=== PATIENT | female | born 1940 | race African-American/Black ===

== ENCOUNTER 2020-01-27 02:59 | Inpatient (IN) ==
[2020-01-27] MEDS ORDERED: ACETAMINOPHEN 500 MG TABLET PO STA (04:04)
[2020-01-27] MEDS ORDERED: SODIUM CHLORIDE 0.9% 1,000 ML IV STA (04:04)
[2020-01-27] MEDS ORDERED: hydrALAZINE 20 MG/1 ML VIAL IV STA (04:04)
[2020-01-27 04:20] LABS: Basophils % 0.4 % (0.0-0.8); Immature Granulocytes % 0.6 %; Immature Granulocytes Absolute 0.03 #; Lymphocytes # 0.9 10*3/uL (1.4-4.0); Lymphocytes % 18.6 % (21.3-54.2); Mean Corpuscular HGB Conc 31.7 GM/DL (32-36); Mean Corpuscular Volume 82.3 FL (87-102); Monocytes % 4.7 % (1.7-12.7); Neutrophils % 75.7 % (38.7-73.9); Platelet Count 187 T/CUMM (130-400); Red Blood Count 4.98 MC/CUMM (3.8-5.5); Red Cell Distribution Width 12.7 % (9.3-17.3); White Blood Count 4.7 T/CUMM (4-12)
[2020-01-27 04:27] LABS: PT Patient Result 10.8 SECS (9.8-11.9)
[2020-01-27 04:33] LABS: Alanine Aminotransferase 17 U/L (13-56); Albumin 2.5 G/DL (3.4-5.0); Alkaline Phosphatase 77 U/L (45-117); Aspartate Amino Transferase 41 U/L (0-37); Bilirubin,Total < 0.39 MG/DL (0.2-1.0); Blood Urea Nitrogen 26 MG/DL (7-18); Calcium 8.7 MG/DL (8.5-10.1); Estimated Glom Filtration Rate 80 ML/MIN; Ferritin 463.8 ng/ml (8-252); Glucose 117 MG/DL (74-106); Osmolality,Calculated 263.9 MOS/KG (273-304); Total Protein 6.9 G/DL (6.4-8.3)
[2020-01-27] MEDS ORDERED: AZITHROMYCIN INJ 500 MG in SODIUM CHLORIDE 0.9% 250 ML IV STA (05:37)
[2020-01-27] MEDS ORDERED: ONDANSETRON 4 MG/2 ML VIAL IV PRN (05:46)
[2020-01-27] MEDS ORDERED: GLUCAGON 1 MG VIAL IM PRN ×2 (05:46→05:54)
[2020-01-27] MEDS ORDERED: ACETAMINOPHEN 325 MG TABLET PO PRN (05:46)
[2020-01-27] MEDS ORDERED: DEXTROSE 10% 250 ML BAG IV PRN (05:53)
[2020-01-27] MEDS ORDERED: DEXTROSE 50% 25 GM/50 ML VIAL IV PRN (05:54)
[2020-01-27] MEDS ORDERED: AZITHROMYCIN INJ 500 MG in SODIUM CHLORIDE 0.9% 250 ML IV SCH (06:00)
[2020-01-27] MEDS ORDERED: risperiDONE 1 MG TABLET PO SCH (09:00)
[2020-01-27] MEDS ORDERED: DULoxetine 30 MG CAPSULE PO SCH (09:00)
[2020-01-27] MEDS ORDERED: METOPROLOL TARTRATE 50 MG TABLET PO SCH (09:00)
[2020-01-27] MEDS ORDERED: lisinopriL 10 MG TABLET PO SCH (09:00)
[2020-01-27] MEDS ORDERED: metFORMIN 500 MG TABLET PO SCH (09:00)
[2020-01-27] MEDS ORDERED: GABAPENTIN 300 MG CAPSULE PO SCH (09:00)
[2020-01-27] MEDS ORDERED: PANTOPRAZOLE 40 MG TABLET PO SCH (09:00)
[2020-01-27] MEDS: INSULIN REGULAR 100 UNIT/ML SUBCUT SCH ×4 (09:15→23:00)
[2020-01-27] MEDS ORDERED: cefTRIAXone 2,000 MG in SYRINGE 1 EACH IV SCH (11:00)
[2020-01-27] MEDS: ENOXAPARIN 40 MG/0.4 ML SYRINGE SUBCUT SCH (11:23)
[2020-01-27] MEDS: FUROSEMIDE 20 MG TABLET PO SCH (11:23)
[2020-01-27] MEDS: ISOSORBIDE MONONITRATE 30 MG TABLET PO SCH (11:23)
[2020-01-27] MEDS: CLOPIDOGREL 75 MG TABLET PO SCH (11:24)
[2020-01-27] MEDS: SODIUM CHLORIDE 0.9% 1,000 ML IV SCH (14:28)
[2020-01-27] MEDS: PIPERACILLIN/TAZOBACTAM 3,375 MG in SODIUM CHLORIDE 0.9% 100 ML IV SCH ×2 (14:29→23:25)
[2020-01-27] MEDS: ZINC GLUCONATE 50 MG TABLET PO SCH (17:41)
[2020-01-27] MEDS: VANCOMYCIN INJ 1,250 MG in SODIUM CHLORIDE 0.9% 250 ML IV SCH (18:20)
[2020-01-27] MEDS: RANOLAZINE 500 MG TABLET PO SCH (21:00)
[2020-01-27] MEDS: carvediloL 3.125 MG TABLET PO SCH (21:00)
[2020-01-28] MEDS ORDERED: LABETALOL 20 MG/4 ML SYRINGE IV PRN (01:29)
[2020-01-28] MEDS: hydrALAZINE 20 MG/1 ML VIAL IV PRN ×2 (02:00→10:08)
[2020-01-28 06:09] LABS: Basophils % 0.3 % (0.0-0.8); Hematocrit 41.7 VOL% (35.7-47.0); Hemoglobin 13.6 GM/DL (12.0-16.0); Immature Granulocytes Absolute 0.08 #; Lymphocytes # 0.9 10*3/uL (1.4-4.0); Lymphocytes % 11.5 % (21.3-54.2); Mean Corpuscular HGB Conc 32.6 GM/DL (32-36); Mean Platelet Volume 11.3 FL (9.6-12.0); Monocytes % 3.3 % (1.7-12.7); Neutrophils % 83.9 % (38.7-73.9); Platelet Count 238 T/CUMM (130-400); Red Blood Count 5.28 MC/CUMM (3.8-5.5); Red Cell Distribution Width 12.7 % (9.3-17.3)
[2020-01-28 06:23] LABS: Calcium 9.1 MG/DL (8.5-10.1); Osmolality,Calculated 264.5 MOS/KG (273-304)
[2020-01-28 07:14] LABS: ABG Base Excess 1.1 MMOL/L (-2.5-2.5); ABG HCO3 25.2 MMOL/L (20-26); ABG PCO2 28.3 MM HG (35-48); ABG PH 7.516 (7.35-7.45); ABG PO2 56.5 MM HG (80-95); ABG TCO2 19.8 MMOL/L (23-27)
[2020-01-28] MEDS: PIPERACILLIN/TAZOBACTAM 3,375 MG in SODIUM CHLORIDE 0.9% 100 ML IV SCH ×3 (07:50→23:28)
[2020-01-28] MEDS: INSULIN REGULAR 100 UNIT/ML SUBCUT SCH ×2 (08:01→20:17)
[2020-01-28] MEDS ORDERED: MAGNESIUM SULF RIDER 4 GM in PREMIX 1 EACH IV PRN (08:18)
[2020-01-28] MEDS ORDERED: MAGNESIUM SULF RIDER 2 GM in PREMIX 1 EACH IV PRN (08:18)
[2020-01-28] MEDS: CLOPIDOGREL 75 MG TABLET PO SCH (10:08)
[2020-01-28] MEDS: FUROSEMIDE 20 MG TABLET PO SCH (10:08)
[2020-01-28] MEDS: AZITHROMYCIN 250 MG TABLET PO SCH (10:08)
[2020-01-28] MEDS: ZINC GLUCONATE 50 MG TABLET PO SCH (10:08)
[2020-01-28] MEDS: ENOXAPARIN 40 MG/0.4 ML SYRINGE SUBCUT SCH (10:08)
[2020-01-28] MEDS: RANOLAZINE 500 MG TABLET PO SCH (10:08)
[2020-01-28] MEDS: ISOSORBIDE MONONITRATE 30 MG TABLET PO SCH (10:08)
[2020-01-28] MEDS: carvediloL 3.125 MG TABLET PO SCH (10:08)
[2020-01-28] MEDS ORDERED: SUCCINYLCHOLINE 200 MG/10 ML VIAL ONE (12:09)
[2020-01-28 13:09] LABS: ABG Base Excess 0.2 MMOL/L (-2.5-2.5); ABG HCO3 24.6 MMOL/L (20-26); ABG Oxygen Saturation 99.7 % (95-100); ABG PCO2 29.8 MM HG (35-48); ABG PH 7.487 (7.35-7.45); ABG TCO2 19.7 MMOL/L (23-27)
[2020-01-28] MEDS ORDERED: fentaNYL INJ 1,250 MCG in SODIUM CHLORIDE 0.9% 225 ML IV PRN (15:41)
[2020-01-28] MEDS: SODIUM CHLORIDE 0.9% 1,000 ML IV SCH ×2 (17:45→20:15)
[2020-01-28] MEDS: VANCOMYCIN INJ 1,250 MG in SODIUM CHLORIDE 0.9% 250 ML IV SCH (17:45)
[2020-01-28] MEDS ORDERED: NOREPINEPHRINE 8 MG in SODIUM CHLORIDE 0.9% 242 ML IV PRN (19:30)
[2020-01-28] MEDS: lisinopriL 20 MG TABLET PO SCH (20:18)
[2020-01-29] MEDS: SIMVASTATIN 10 MG TABLET PO SCH ×2 (00:12→20:53)
[2020-01-29] MEDS: ASPIRIN EC 81 MG TABLET PO SCH ×2 (00:12→10:00)
[2020-01-29] MEDS: INSULIN REGULAR 100 UNIT/ML SUBCUT SCH ×4 (00:12→20:53)
[2020-01-29] MEDS: RANOLAZINE 500 MG TABLET PO SCH ×3 (00:12→20:53)
[2020-01-29 03:20] LABS: ABG Base Excess 0.8 MMOL/L (-2.5-2.5); ABG HCO3 25.2 MMOL/L (20-26); ABG Oxygen Saturation 99.5 % (95-100); ABG PCO2 41.5 MM HG (35-48); ABG TCO2 23.2 MMOL/L (23-27); Pt O2 Delivery Device Ventilator
[2020-01-29] MEDS: PIPERACILLIN/TAZOBACTAM 3,375 MG in SODIUM CHLORIDE 0.9% 100 ML IV SCH ×3 (05:18→22:29)
[2020-01-29 06:16] LABS: Basophils % 0.2 % (0.0-0.8); Eosinophils % 0.6 % (0.00-10.9); Hematocrit 30.1 VOL% (35.7-47.0); Hemoglobin 9.7 GM/DL (12.0-16.0); Immature Granulocytes % 1.1 %; Immature Granulocytes Absolute 0.06 #; Lymphocytes # 0.9 10*3/uL (1.4-4.0); Lymphocytes % 15.7 % (21.3-54.2); Mean Corpuscular HGB Conc 32.2 GM/DL (32-36); Mean Corpuscular Volume 80.9 FL (87-102); Mean Platelet Volume 10.5 FL (9.6-12.0); Monocytes % 3.7 % (1.7-12.7); Neutrophils % 78.7 % (38.7-73.9); Platelet Count 201 T/CUMM (130-400); Red Blood Count 3.72 MC/CUMM (3.8-5.5); Red Cell Distribution Width 13.2 % (9.3-17.3); White Blood Count 5.4 T/CUMM (4-12)
[2020-01-29 06:33] LABS: Hypochromasia 1+; Microcytosis Slight; Ovalocytes Slight
[2020-01-29] MEDS: SODIUM CHLORIDE 0.9% 1,000 ML IV SCH ×2 (08:05→23:48)
[2020-01-29] MEDS: FUROSEMIDE 20 MG TABLET PO SCH (10:00)
[2020-01-29] MEDS: AZITHROMYCIN 250 MG TABLET PO SCH (10:00)
[2020-01-29] MEDS: ENOXAPARIN 40 MG/0.4 ML SYRINGE SUBCUT SCH (10:00)
[2020-01-29] MEDS: ISOSORBIDE MONONITRATE 30 MG TABLET PO SCH (10:00)
[2020-01-29] MEDS: ZINC GLUCONATE 50 MG TABLET PO SCH (10:00)
[2020-01-29] MEDS ORDERED: SODIUM CHLORIDE 0.9% 1,000 ML IV PRN (13:34)
[2020-01-29 15:22] LABS: Calcium 8.3 MG/DL (8.5-10.1); Osmolality,Calculated 268.4 MOS/KG (273-304)
[2020-01-29] MEDS: VANCOMYCIN INJ 1,250 MG in SODIUM CHLORIDE 0.9% 250 ML IV SCH (17:36)
[2020-01-29] MEDS: lisinopriL 20 MG TABLET PO SCH (17:37)
[2020-01-29 20:45] LABS: % Iron Saturation 16.7 % (18-50); Ferritin 531.9 ng/ml (8-252)
[2020-01-29] MEDS ORDERED: HALOPERIDOL 5 MG/ML AMP IM ONE (21:35)
[2020-01-30] MEDS ORDERED: LORazepam 2 MG/1 ML VIAL IV ONE ×2 (02:14→05:23)
[2020-01-30 05:06] LABS: Basophils % 0.3 % (0.0-0.8); Eosinophils % 0.1 % (0.00-10.9); Hematocrit 30.6 VOL% (35.7-47.0); Hemoglobin 9.7 GM/DL (12.0-16.0); Immature Granulocytes % 0.8 %; Immature Granulocytes Absolute 0.07 #; Lymphocytes # 0.7 10*3/uL (1.4-4.0); Lymphocytes % 7.1 % (21.3-54.2); Mean Corpuscular HGB Conc 31.7 GM/DL (32-36); Mean Corpuscular Volume 82.3 FL (87-102); Monocytes % 5.4 % (1.7-12.7); Neutrophils % 86.3 % (38.7-73.9); Platelet Count 201 T/CUMM (130-400); Red Blood Count 3.72 MC/CUMM (3.8-5.5); Red Cell Distribution Width 13.1 % (9.3-17.3); White Blood Count 9.2 T/CUMM (4-12)
[2020-01-30 05:27] LABS: Eosinophils 1 % (0-10); Hypochromasia 1+; Lymphocytes 8 % (20-55); Ovalocytes Slight; Platelet Estimate Adequate; Segmented Neutrophils 87 % (50-85); Total Cells Counted 100
[2020-01-30 05:30] LABS: Osmolality,Calculated 287.1 MOS/KG (273-304)
[2020-01-30 05:32] LABS: ABG Base Excess -4.1 MMOL/L (-2.5-2.5); ABG Oxygen Saturation 98.1 % (95-100); ABG PCO2 33.3 MM HG (35-48); ABG PH 7.397 (7.35-7.45); ABG PO2 142.9 MM HG (80-95); Allen Test Positive
[2020-01-30 05:33] LABS: Microcytosis Slight
[2020-01-30] MEDS: PIPERACILLIN/TAZOBACTAM 3,375 MG in SODIUM CHLORIDE 0.9% 100 ML IV SCH ×3 (05:45→22:28)
[2020-01-30] MEDS: VANCOMYCIN INJ 1,250 MG in SODIUM CHLORIDE 0.9% 250 ML IV SCH (05:50)
[2020-01-30] MEDS ORDERED: ZIPRASIDONE 20 MG/1 ML VIAL IM ONE (08:00)
[2020-01-30] MEDS: ASPIRIN EC 81 MG TABLET PO SCH (08:13)
[2020-01-30] MEDS: FUROSEMIDE 20 MG TABLET PO SCH (08:13)
[2020-01-30] MEDS: ISOSORBIDE MONONITRATE 30 MG TABLET PO SCH (08:13)
[2020-01-30] MEDS: RANOLAZINE 500 MG TABLET PO SCH ×2 (08:34→20:35)
[2020-01-30] MEDS: ENOXAPARIN 100 MG/ML SYRINGE SUBCUT SCH (08:34)
[2020-01-30] MEDS: AZITHROMYCIN 250 MG TABLET PO SCH (08:34)
[2020-01-30] MEDS: ZINC GLUCONATE 50 MG TABLET PO SCH (08:34)
[2020-01-30] MEDS ORDERED: POTASSIUM CHLORIDE 10 MEQ TABLET PO ONE (08:39)
[2020-01-30] MEDS ORDERED: MAGNESIUM SULF RIDER 2 GM in PREMIX 1 EACH IV ONE (08:40)
[2020-01-30] MEDS: METOPROLOL TARTRATE 25 MG TABLET PO SCH ×2 (09:50→20:35)
[2020-01-30] MEDS: INSULIN REGULAR 100 UNIT/ML SUBCUT SCH ×4 (10:07→21:05)
[2020-01-30] MEDS: DEXMEDETOMIDINE 200 MCG in SODIUM CHLORIDE 0.9% 48 ML IV PRN ×2 (11:53→14:25)
[2020-01-30] MEDS: ZIPRASIDONE 20 MG/1 ML VIAL IM SCH ×2 (15:15→19:31)
[2020-01-30] MEDS: SIMVASTATIN 10 MG TABLET PO SCH (20:35)
[2020-01-30] MEDS: SODIUM CHLORIDE 0.9% 1,000 ML IV SCH (22:25)
[2020-01-30] MEDS: DEXMEDETOMIDINE 400 MCG in SODIUM CHLORIDE 0.9% 96 ML IV PRN (22:31)
[2020-01-31] MEDS: ZIPRASIDONE 20 MG/1 ML VIAL IM SCH ×4 (01:03→20:03)
[2020-01-31 04:46] LABS: Basophils % 0.2 % (0.0-0.8); Eosinophils # 0.1 10*3/uL (0.0-0.87); Eosinophils % 0.9 % (0.00-10.9); Hematocrit 31.7 VOL% (35.7-47.0); Hemoglobin 10.4 GM/DL (12.0-16.0); Immature Granulocytes % 0.8 %; Immature Granulocytes Absolute 0.08 #; Lymphocytes # 1.4 10*3/uL (1.4-4.0); Lymphocytes % 13.8 % (21.3-54.2); Mean Corpuscular HGB Conc 32.8 GM/DL (32-36); Mean Corpuscular Volume 79.8 FL (87-102); Mean Platelet Volume 10.5 FL (9.6-12.0); Neutrophils % 79.3 % (38.7-73.9); Platelet Count 257 T/CUMM (130-400); Red Blood Count 3.97 MC/CUMM (3.8-5.5); Red Cell Distribution Width 13.1 % (9.3-17.3); White Blood Count 10.1 T/CUMM (4-12)
[2020-01-31 04:48] LABS: Allen Test Positive
[2020-01-31 04:49] LABS: ABG Base Excess -2.8 MMOL/L (-2.5-2.5); ABG HCO3 21.9 MMOL/L (20-26); ABG Oxygen Saturation 89.7 % (95-100); ABG PCO2 33.8 MM HG (35-48); ABG PH 7.406 (7.35-7.45); ABG PO2 61.4 MM HG (80-95); ABG TCO2 19.3 MMOL/L (23-27)
[2020-01-31 05:05] LABS: Osmolality,Calculated 290.7 MOS/KG (273-304)
[2020-01-31] MEDS: PIPERACILLIN/TAZOBACTAM 3,375 MG in SODIUM CHLORIDE 0.9% 100 ML IV SCH ×2 (05:33→17:59)
[2020-01-31] MEDS: DEXMEDETOMIDINE 400 MCG in SODIUM CHLORIDE 0.9% 96 ML IV PRN ×3 (05:40→18:35)
[2020-01-31 06:20] LABS: Hepatitis B Core IgM Quant 0.13 Index; Hepatitis B Surface Ag Quant 0.81 Index; Hepatitis B Surface Ag Result Negative (Negative); Hepatitis C Virus Ab Quant 0.16 Index; Hepatitis C Virus Ab Result Negative (Negative)
[2020-01-31 06:39] LABS: Band Neutrophils 1 % (0-10); Eosinophils 2 % (0-10); Hypochromasia 1+; Lymphocytes 16 % (20-55); Microcytosis Slight; Ovalocytes Slight; Platelet Estimate Adequate; Segmented Neutrophils 77 % (50-85); Total Cells Counted 100
[2020-01-31] MEDS: ENOXAPARIN 100 MG/ML SYRINGE SUBCUT SCH (09:01)
[2020-01-31] MEDS: INSULIN REGULAR 100 UNIT/ML SUBCUT SCH ×4 (09:53→20:03)
[2020-01-31] MEDS: POTASSIUM CHLORIDE RIDER 10 MEQ in PREMIX 1 EACH IV PRN ×2 (10:00→14:08)
[2020-01-31] MEDS: ISOSORBIDE MONONITRATE 30 MG TABLET PO SCH (12:45)
[2020-01-31] MEDS: METOPROLOL TARTRATE 25 MG TABLET PO SCH ×2 (12:45→20:03)
[2020-01-31] MEDS: SODIUM CHLORIDE 0.9% 1,000 ML IV SCH (12:46)
[2020-01-31] MEDS: DULoxetine 30 MG CAPSULE PO SCH (12:48)
[2020-01-31] MEDS: ARIPiprazole 10 MG TABLET PO SCH ×2 (12:48→20:03)
[2020-01-31] MEDS: GABAPENTIN 600 MG TABLET PO SCH ×2 (12:49→20:03)
[2020-01-31] MEDS ORDERED: VALPROIC ACID INJ 500 MG in SODIUM CHLORIDE 0.9% 100 ML IV SCH (13:00)
[2020-01-31] MEDS: ASPIRIN EC 81 MG TABLET PO SCH (13:10)
[2020-01-31] MEDS: FUROSEMIDE 20 MG TABLET PO SCH (13:10)
[2020-01-31] MEDS: ZINC GLUCONATE 50 MG TABLET PO SCH (13:11)
[2020-01-31] MEDS: AZITHROMYCIN 250 MG TABLET PO SCH (13:11)
[2020-01-31] MEDS: RANOLAZINE 500 MG TABLET PO SCH ×2 (13:11→20:03)
[2020-01-31] MEDS: SIMVASTATIN 10 MG TABLET PO SCH (20:04)
[2020-01-31] MEDS: POTASSIUM CHLORIDE 20 MEQ/15 ML UDCUP PO ONE (22:33)
[2020-02-01] MEDS: POTASSIUM CHLORIDE 20 MEQ/15 ML UDCUP PO ONE (00:17)
[2020-02-01] MEDS: ZIPRASIDONE 20 MG/1 ML VIAL IM SCH ×4 (01:37→21:39)
[2020-02-01] MEDS: LORazepam 2 MG/1 ML VIAL IV PRN ×7 (02:10→22:35)
[2020-02-01] MEDS: SODIUM CHLORIDE 0.9% 1,000 ML IV SCH ×3 (03:56→16:58)
[2020-02-01 04:42] LABS: ABG Base Excess -2.7 MMOL/L (-2.5-2.5); ABG HCO3 22.1 MMOL/L (20-26); ABG Oxygen Saturation 98.8 % (95-100); ABG PCO2 34.6 MM HG (35-48); ABG PH 7.402 (7.35-7.45); Allen Test Positive
[2020-02-01 05:24] LABS: Basophils % 0.4 % (0.0-0.8); Eosinophils % 0.4 % (0.00-10.9); Hematocrit 28.4 VOL% (35.7-47.0); Hemoglobin 9.4 GM/DL (12.0-16.0); Immature Granulocytes % 1.3 %; Immature Granulocytes Absolute 0.11 #; Lymphocytes # 1.3 10*3/uL (1.4-4.0); Lymphocytes % 15.9 % (21.3-54.2); Mean Corpuscular HGB Conc 33.1 GM/DL (32-36); Mean Corpuscular Volume 80.2 FL (87-102); Mean Platelet Volume 10.8 FL (9.6-12.0); Monocytes % 4.5 % (1.7-12.7); NRBC # 0.03 10*3/uL; Neutrophils % 77.5 % (38.7-73.9); Platelet Count 218 T/CUMM (130-400); Red Blood Count 3.54 MC/CUMM (3.8-5.5); Red Cell Distribution Width 13.1 % (9.3-17.3); White Blood Count 8.5 T/CUMM (4-12)
[2020-02-01] MEDS: PIPERACILLIN/TAZOBACTAM 3,375 MG in SODIUM CHLORIDE 0.9% 100 ML IV SCH ×2 (05:30→17:17)
[2020-02-01 05:38] LABS: Bilirubin,Total 1.5 MG/DL (0.2-1.0); Calcium 8.4 MG/DL (8.5-10.1); Osmolality,Calculated 292.4 MOS/KG (273-304); Total Protein 6.8 G/DL (6.4-8.3)
[2020-02-01 05:52] LABS: Hypochromasia 1+; Microcytosis 1+; Ovalocytes Few
[2020-02-01 05:53] LABS: Platelet Estimate Normal
[2020-02-01] MEDS: ARIPiprazole 10 MG TABLET PO SCH ×2 (08:30→21:47)
[2020-02-01] MEDS: ASPIRIN EC 81 MG TABLET PO SCH (08:30)
[2020-02-01] MEDS: ISOSORBIDE MONONITRATE 30 MG TABLET PO SCH (08:30)
[2020-02-01] MEDS: ZINC GLUCONATE 50 MG TABLET PO SCH (08:30)
[2020-02-01] MEDS: RANOLAZINE 500 MG TABLET PO SCH ×2 (08:30→21:48)
[2020-02-01] MEDS: GABAPENTIN 600 MG TABLET PO SCH ×2 (08:30→21:48)
[2020-02-01] MEDS: METOPROLOL TARTRATE 25 MG TABLET PO SCH ×2 (08:30→21:47)
[2020-02-01] MEDS: FUROSEMIDE 20 MG TABLET PO SCH (08:30)
[2020-02-01] MEDS: ENOXAPARIN 100 MG/ML SYRINGE SUBCUT SCH (08:30)
[2020-02-01] MEDS: DULoxetine 30 MG CAPSULE PO SCH (08:30)
[2020-02-01] MEDS: INSULIN REGULAR 100 UNIT/ML SUBCUT SCH ×4 (08:40→21:47)
[2020-02-01] MEDS: SIMVASTATIN 10 MG TABLET PO SCH (21:48)
[2020-02-02] MEDS: ZIPRASIDONE 20 MG/1 ML VIAL IM SCH ×5 (02:09→19:52)
[2020-02-02] MEDS: LORazepam 2 MG/1 ML VIAL IV PRN ×3 (02:10→20:15)
[2020-02-02] MEDS: hydrALAZINE 20 MG/1 ML VIAL IV PRN ×2 (02:14→07:17)
[2020-02-02 04:29] LABS: Allen Test Positive; Pt O2 Delivery Device Venturi Mask
[2020-02-02 04:30] LABS: ABG Base Excess -2.7 MMOL/L (-2.5-2.5); ABG Oxygen Saturation 89.5 % (95-100); ABG PCO2 31.5 MM HG (35-48); ABG PH 7.428 (7.35-7.45); ABG PO2 61.6 MM HG (80-95)
[2020-02-02 04:38] LABS: Basophils % 0.4 % (0.0-0.8); Eosinophils # 0.1 10*3/uL (0.0-0.87); Eosinophils % 1.6 % (0.00-10.9); Hematocrit 28.6 VOL% (35.7-47.0); Hemoglobin 9.4 GM/DL (12.0-16.0); Immature Granulocytes Absolute 0.41 #; Lymphocytes # 1.1 10*3/uL (1.4-4.0); Lymphocytes % 13.8 % (21.3-54.2); Mean Corpuscular HGB Conc 32.9 GM/DL (32-36); Mean Corpuscular Volume 82.7 FL (87-102); Mean Platelet Volume 10.4 FL (9.6-12.0); Monocytes % 5.3 % (1.7-12.7); NRBC # 0.03 10*3/uL; Neutrophils % 73.9 % (38.7-73.9); Platelet Count 260 T/CUMM (130-400); Red Blood Count 3.46 MC/CUMM (3.8-5.5); Red Cell Distribution Width 13.2 % (9.3-17.3); White Blood Count 8.3 T/CUMM (4-12)
[2020-02-02 04:39] LABS: Bilirubin,Total 1.2 MG/DL (0.2-1.0); Calcium 8.7 MG/DL (8.5-10.1); Osmolality,Calculated 297.3 MOS/KG (273-304); Total Protein 6.9 G/DL (6.4-8.3)
[2020-02-02] MEDS ORDERED: hydrALAZINE 20 MG/1 ML VIAL IV ONE (05:39)
[2020-02-02] MEDS: PIPERACILLIN/TAZOBACTAM 3,375 MG in SODIUM CHLORIDE 0.9% 100 ML IV SCH ×2 (05:54→17:50)
[2020-02-02] MEDS: SODIUM CHLORIDE 0.9% 1,000 ML IV SCH ×2 (06:57→13:30)
[2020-02-02] MEDS: RANOLAZINE 500 MG TABLET PO SCH ×2 (08:00→20:00)
[2020-02-02] MEDS: DULoxetine 30 MG CAPSULE PO SCH (08:00)
[2020-02-02] MEDS: ZINC GLUCONATE 50 MG TABLET PO SCH (08:00)
[2020-02-02] MEDS: GABAPENTIN 600 MG TABLET PO SCH ×2 (08:00→20:00)
[2020-02-02] MEDS: ENOXAPARIN 100 MG/ML SYRINGE SUBCUT SCH (08:00)
[2020-02-02] MEDS: FUROSEMIDE 20 MG TABLET PO SCH (08:00)
[2020-02-02] MEDS: METOPROLOL TARTRATE 25 MG TABLET PO SCH ×2 (08:00→20:00)
[2020-02-02] MEDS: ASPIRIN EC 81 MG TABLET PO SCH (08:00)
[2020-02-02] MEDS: amLODIPine 5 MG TABLET PO SCH (08:00)
[2020-02-02] MEDS: ARIPiprazole 10 MG TABLET PO SCH ×2 (08:00→20:00)
[2020-02-02] MEDS: ISOSORBIDE MONONITRATE 30 MG TABLET PO SCH (08:00)
[2020-02-02] MEDS: POTASSIUM CHLORIDE 20 MEQ TABLET PO PRN ×2 (09:00→16:15)
[2020-02-02] MEDS: INSULIN REGULAR 100 UNIT/ML SUBCUT SCH ×4 (10:01→20:00)
[2020-02-02] MEDS: SIMVASTATIN 10 MG TABLET PO SCH (20:00)
[2020-02-03] MEDS: LORazepam 2 MG/1 ML VIAL IV PRN ×6 (01:12→21:15)
[2020-02-03] MEDS: SODIUM CHLORIDE 0.9% 1,000 ML IV SCH ×3 (01:50→15:43)
[2020-02-03] MEDS: ZIPRASIDONE 20 MG/1 ML VIAL IM SCH ×2 (02:17→09:49)
[2020-02-03 03:49] LABS: Basophils % 0.4 % (0.0-0.8); Eosinophils # 0.1 10*3/uL (0.0-0.87); Hematocrit 26.9 VOL% (35.7-47.0); Hemoglobin 8.8 GM/DL (12.0-16.0); Immature Granulocytes % 4.2 %; Lymphocytes # 0.9 10*3/uL (1.4-4.0); Mean Corpuscular HGB Conc 32.7 GM/DL (32-36); Mean Corpuscular Volume 84.3 FL (87-102); Mean Platelet Volume 10.3 FL (9.6-12.0); Monocytes % 6.4 % (1.7-12.7); NRBC # 0.09 10*3/uL; Platelet Count 279 T/CUMM (130-400); Red Blood Count 3.19 MC/CUMM (3.8-5.5); Red Cell Distribution Width 13.2 % (9.3-17.3); White Blood Count 7.1 T/CUMM (4-12)
[2020-02-03 04:17] LABS: Albumin 1.9 G/DL (3.4-5.0); Bilirubin,Total 1.2 MG/DL (0.2-1.0); Calcium 9.1 MG/DL (8.5-10.1); Osmolality,Calculated 296.4 MOS/KG (273-304); Total Protein 6.7 G/DL (6.4-8.3)
[2020-02-03 04:36] LABS: Allen Test Positive
[2020-02-03 04:37] LABS: ABG Base Excess -1.3 MMOL/L (-2.5-2.5); ABG HCO3 23.3 MMOL/L (20-26); ABG Oxygen Saturation 95.2 % (95-100); ABG PCO2 36.7 MM HG (35-48); ABG PH 7.405 (7.35-7.45); ABG PO2 79.2 MM HG (80-95); ABG TCO2 21.1 MMOL/L (23-27)
[2020-02-03] MEDS: PIPERACILLIN/TAZOBACTAM 3,375 MG in SODIUM CHLORIDE 0.9% 100 ML IV SCH ×2 (05:37→18:20)
[2020-02-03] MEDS: INSULIN REGULAR 100 UNIT/ML SUBCUT SCH ×4 (09:30→20:46)
[2020-02-03] MEDS: ASPIRIN EC 81 MG TABLET PO SCH (10:03)
[2020-02-03] MEDS: METOPROLOL TARTRATE 25 MG TABLET PO SCH ×2 (10:03→20:46)
[2020-02-03] MEDS: ISOSORBIDE MONONITRATE 30 MG TABLET PO SCH (10:03)
[2020-02-03] MEDS: ARIPiprazole 10 MG TABLET PO SCH ×2 (10:03→20:46)
[2020-02-03] MEDS: DULoxetine 30 MG CAPSULE PO SCH (10:03)
[2020-02-03] MEDS: FUROSEMIDE 20 MG TABLET PO SCH (10:03)
[2020-02-03] MEDS: amLODIPine 5 MG TABLET PO SCH (10:04)
[2020-02-03] MEDS: GABAPENTIN 600 MG TABLET PO SCH ×2 (10:04→20:46)
[2020-02-03] MEDS: ENOXAPARIN 100 MG/ML SYRINGE SUBCUT SCH (10:04)
[2020-02-03] MEDS: RANOLAZINE 500 MG TABLET PO SCH ×2 (10:04→20:46)
[2020-02-03] MEDS: ZINC GLUCONATE 50 MG TABLET PO SCH (10:34)
[2020-02-03] MEDS: ZINC SULFATE 220 MG CAPSULE PO SCH (10:39)
[2020-02-03] MEDS: SIMVASTATIN 10 MG TABLET PO SCH (20:46)
[2020-02-04] MEDS: hydrALAZINE 20 MG/1 ML VIAL IV PRN (00:15)
[2020-02-04] MEDS: LORazepam 2 MG/1 ML VIAL IV PRN ×5 (00:18→20:07)
[2020-02-04] MEDS ORDERED: hydrALAZINE 20 MG/1 ML VIAL IV ONE (01:21)
[2020-02-04] MEDS ORDERED: HALOPERIDOL 5 MG/ML AMP IM ONE (01:21)
[2020-02-04] MEDS ORDERED: flumazeniL 0.5 MG/5 ML VIAL IV ONE (02:23)
[2020-02-04 05:32] LABS: Basophils % 0.3 % (0.0-0.8); Eosinophils # 0.1 10*3/uL (0.0-0.87); Eosinophils % 0.7 % (0.00-10.9); Hematocrit 28.2 VOL% (35.7-47.0); Hemoglobin 9.1 GM/DL (12.0-16.0); Immature Granulocytes % 3.2 %; Immature Granulocytes Absolute 0.28 #; Lymphocytes # 0.6 10*3/uL (1.4-4.0); Lymphocytes % 6.3 % (21.3-54.2); Mean Corpuscular HGB Conc 32.3 GM/DL (32-36); Mean Corpuscular Volume 85.2 FL (87-102); Mean Platelet Volume 10.6 FL (9.6-12.0); Monocytes % 4.2 % (1.7-12.7); NRBC # 0.05 10*3/uL; Neutrophils % 85.3 % (38.7-73.9); Platelet Count 300 T/CUMM (130-400); Red Blood Count 3.31 MC/CUMM (3.8-5.5); Red Cell Distribution Width 13.4 % (9.3-17.3); White Blood Count 8.8 T/CUMM (4-12)
[2020-02-04] MEDS: PIPERACILLIN/TAZOBACTAM 3,375 MG in SODIUM CHLORIDE 0.9% 100 ML IV SCH ×2 (05:33→17:52)
[2020-02-04 05:34] LABS: Calcium 8.8 MG/DL (8.5-10.1)
[2020-02-04 06:04] LABS: Albumin 1.9 G/DL (3.4-5.0); Bilirubin,Total 1.1 MG/DL (0.2-1.0); Calcium 8.8 MG/DL (8.5-10.1); Total Protein 6.6 G/DL (6.4-8.3)
[2020-02-04] MEDS: DULoxetine 30 MG CAPSULE PO SCH (08:28)
[2020-02-04] MEDS: amLODIPine 10 MG TABLET PO SCH (08:29)
[2020-02-04] MEDS: ENOXAPARIN 100 MG/ML SYRINGE SUBCUT SCH (08:29)
[2020-02-04] MEDS: INSULIN REGULAR 100 UNIT/ML SUBCUT SCH ×4 (08:29→21:05)
[2020-02-04] MEDS: RANOLAZINE 500 MG TABLET PO SCH ×2 (08:29→20:06)
[2020-02-04] MEDS: FUROSEMIDE 20 MG TABLET PO SCH (08:29)
[2020-02-04] MEDS: ISOSORBIDE MONONITRATE 30 MG TABLET PO SCH (08:29)
[2020-02-04] MEDS: ZINC SULFATE 220 MG CAPSULE PO SCH (08:29)
[2020-02-04] MEDS: ASPIRIN EC 81 MG TABLET PO SCH (08:29)
[2020-02-04] MEDS: GABAPENTIN 600 MG TABLET PO SCH ×2 (08:29→20:06)
[2020-02-04] MEDS: ARIPiprazole 10 MG TABLET PO SCH ×2 (08:29→20:06)
[2020-02-04] MEDS: METOPROLOL TARTRATE 25 MG TABLET PO SCH ×2 (08:29→20:06)
[2020-02-04] MEDS: hydrALAZINE 25 MG TABLET PO SCH ×2 (17:52→20:06)
[2020-02-04] MEDS: SIMVASTATIN 10 MG TABLET PO SCH (20:06)
[2020-02-05] MEDS: PIPERACILLIN/TAZOBACTAM 3,375 MG in SODIUM CHLORIDE 0.9% 100 ML IV SCH (04:00)
[2020-02-05] MEDS: LORazepam 2 MG/1 ML VIAL IV PRN ×2 (04:07→20:15)
[2020-02-05 05:09] LABS: ABG Base Excess -0.7 MMOL/L (-2.5-2.5); ABG HCO3 23.7 MMOL/L (20-26); ABG Oxygen Saturation 88.5 % (95-100); ABG PCO2 33.3 MM HG (35-48); ABG PH 7.445 (7.35-7.45); ABG PO2 58.5 MM HG (80-95); ABG TCO2 21.1 MMOL/L (23-27); Allen Test Positive; Pt O2 Delivery Device Other
[2020-02-05 05:42] LABS: Basophils % 0.4 % (0.0-0.8); Eosinophils # 0.2 10*3/uL (0.0-0.87); Hematocrit 29.5 VOL% (35.7-47.0); Hemoglobin 9.1 GM/DL (12.0-16.0); Immature Granulocytes % 3.6 %; Lymphocytes # 1.1 10*3/uL (1.4-4.0); Lymphocytes % 13.5 % (21.3-54.2); Mean Corpuscular HGB Conc 30.8 GM/DL (32-36); Mean Corpuscular Volume 85.5 FL (87-102); Mean Platelet Volume 10.5 FL (9.6-12.0); Monocytes % 4.8 % (1.7-12.7); NRBC # 0.09 10*3/uL; Neutrophils % 75.7 % (38.7-73.9); Platelet Count 306 T/CUMM (130-400); Red Blood Count 3.45 MC/CUMM (3.8-5.5); White Blood Count 8.4 T/CUMM (4-12)
[2020-02-05 06:02] LABS: Albumin 1.9 G/DL (3.4-5.0); Calcium 8.9 MG/DL (8.5-10.1); Osmolality,Calculated 291.4 MOS/KG (273-304); Total Protein 6.7 G/DL (6.4-8.3)
[2020-02-05] MEDS: INSULIN REGULAR 100 UNIT/ML SUBCUT SCH ×4 (08:44→21:07)
[2020-02-05] MEDS: ARIPiprazole 10 MG TABLET PO SCH ×2 (08:45→20:44)
[2020-02-05] MEDS: ISOSORBIDE MONONITRATE 30 MG TABLET PO SCH (08:45)
[2020-02-05] MEDS: DULoxetine 30 MG CAPSULE PO SCH (08:45)
[2020-02-05] MEDS: RANOLAZINE 500 MG TABLET PO SCH ×2 (08:46→20:45)
[2020-02-05] MEDS: ASPIRIN EC 81 MG TABLET PO SCH (08:46)
[2020-02-05] MEDS: ZINC SULFATE 220 MG CAPSULE PO SCH (08:46)
[2020-02-05] MEDS: GABAPENTIN 600 MG TABLET PO SCH ×2 (08:46→20:45)
[2020-02-05] MEDS: METOPROLOL TARTRATE 25 MG TABLET PO SCH ×2 (08:46→20:44)
[2020-02-05] MEDS: amLODIPine 10 MG TABLET PO SCH (08:46)
[2020-02-05] MEDS: FUROSEMIDE 20 MG TABLET PO SCH (08:46)
[2020-02-05] MEDS: hydrALAZINE 25 MG TABLET PO SCH ×3 (08:46→20:44)
[2020-02-05] MEDS: ENOXAPARIN 60 MG/0.6 ML SYRINGE SUBCUT SCH ×2 (08:51→20:45)
[2020-02-05] MEDS: SIMVASTATIN 10 MG TABLET PO SCH (20:45)
[2020-02-06] MEDS: LORazepam 2 MG/1 ML VIAL IV PRN ×3 (01:15→20:32)
[2020-02-06 04:20] LABS: Allen Test Positive; Pt O2 Delivery Device Other
[2020-02-06 04:25] LABS: ABG Base Excess -2.3 MMOL/L (-2.5-2.5); ABG HCO3 22.3 MMOL/L (20-26); ABG Oxygen Saturation 87.5 % (95-100); ABG PCO2 33.4 MM HG (35-48); ABG PH 7.418 (7.35-7.45); ABG PO2 58.7 MM HG (80-95); ABG TCO2 19.9 MMOL/L (23-27)
[2020-02-06 07:59] LABS: Basophils % 0.4 % (0.0-0.8); Eosinophils # 0.2 10*3/uL (0.0-0.87); Eosinophils % 1.8 % (0.00-10.9); Hematocrit 30.7 VOL% (35.7-47.0); Hemoglobin 9.4 GM/DL (12.0-16.0); Immature Granulocytes % 1.9 %; Immature Granulocytes Absolute 0.18 #; Lymphocytes # 0.9 10*3/uL (1.4-4.0); Mean Corpuscular HGB Conc 30.6 GM/DL (32-36); Mean Corpuscular Volume 84.6 FL (87-102); Mean Platelet Volume 10.7 FL (9.6-12.0); Monocytes % 3.9 % (1.7-12.7); NRBC # 0.04 10*3/uL; Platelet Count 347 T/CUMM (130-400); Red Blood Count 3.63 MC/CUMM (3.8-5.5); Red Cell Distribution Width 14.6 % (9.3-17.3); White Blood Count 9.3 T/CUMM (4-12)
[2020-02-06 08:18] LABS: Calcium 9.7 MG/DL (8.5-10.1); Osmolality,Calculated 288.7 MOS/KG (273-304)
[2020-02-06] MEDS: INSULIN REGULAR 100 UNIT/ML SUBCUT SCH ×4 (08:21→20:31)
[2020-02-06] MEDS: DULoxetine 30 MG CAPSULE PO SCH (08:22)
[2020-02-06] MEDS: ENOXAPARIN 60 MG/0.6 ML SYRINGE SUBCUT SCH ×2 (08:22→20:30)
[2020-02-06] MEDS: ARIPiprazole 10 MG TABLET PO SCH ×2 (08:23→20:31)
[2020-02-06] MEDS: ZINC SULFATE 220 MG CAPSULE PO SCH (08:23)
[2020-02-06] MEDS: hydrALAZINE 25 MG TABLET PO SCH ×3 (08:23→20:31)
[2020-02-06] MEDS: amLODIPine 10 MG TABLET PO SCH (08:23)
[2020-02-06] MEDS: GABAPENTIN 600 MG TABLET PO SCH ×2 (08:23→20:30)
[2020-02-06] MEDS: ISOSORBIDE MONONITRATE 30 MG TABLET PO SCH (08:23)
[2020-02-06] MEDS: FUROSEMIDE 20 MG TABLET PO SCH (08:23)
[2020-02-06] MEDS: ASPIRIN EC 81 MG TABLET PO SCH (08:23)
[2020-02-06] MEDS: RANOLAZINE 500 MG TABLET PO SCH ×2 (08:23→20:30)
[2020-02-06] MEDS: METOPROLOL TARTRATE 25 MG TABLET PO SCH ×2 (08:24→20:31)
[2020-02-06] MEDS: SIMVASTATIN 10 MG TABLET PO SCH (20:31)
[2020-02-06 22:19] VITALS: BP 149/66
== END 2020-02-06 23:45 | disposition expired | DRG 208 ==
LOC: SUATTDRO → EDBD → EDUNIT# → N.ED 02:59 → N.EDINP 05:46 → SUATTDRO 05:46 → N.2W 07:50 → N.ICU 01-28 12:04 → N.CC 01-30 19:10 → N.2W 02-04 13:44
PROVIDERS: ADMIT Internal Medicine; ATTEND Internal Medicine